=== PATIENT | male | born 1940 | race Two or more races ===

== ENCOUNTER 2017-05-06 10:10 | Outpatient (CLI) | payer OTHER ==
[~2017-05-06 10:10] MED LIST: COZAAR100 MG; [UNRECOGNIZED DRUG - OTHER]
== END 2017-05-06 15:12 | disposition home or self-care (01) ==
LOC: TOM 10:10
DX: J84.10 Pulmonary fibrosis, unspecified (principal)

== ENCOUNTER 2017-07-05 14:31 | Outpatient (CLI) | payer OTHER | END 2017-07-05 14:44 | disposition home or self-care (01) | LOC: RAD 14:31 | DX: R05 Cough (principal) ==

== ENCOUNTER 2021-09-08 10:19 | Outpatient (CLI) | payer OTHER | END 2021-09-08 10:26 | disposition home or self-care (01) | LOC: TOM 10:19 | PROVIDERS: ATTEND Psychiatry & Neurology Clinical Neurophysiology | DX: G30.1 Alzheimer's disease with late onset (principal) ==